=== PATIENT | female | born 1940 | race Caucasian/White ===

== ENCOUNTER 2017-10-29 13:10 | Outpatient (RCR) | payer MEDICARE ==
[2017-06-09 10:26] VITALS: BMI 17.7
[~2017-10-29 13:10] MED LIST: ACE3 PO; CALC500T76 PO; CET10 PO; CHOL10005 PO; CIT500PT PO; CITA-139 PO; CLON-303 PO; CYAN100088 PO; DICL25TA9 PO; DOC100 PO; FAMO-122 PO; FEXO180T87 PO; FLUT16SP19 NS; FOL1 PO; GAB100 PO; GABA-549 PO; HYDR200T39 PO; LEVO50TA80 PO; LEVO50TA86 PO; LISI-346 PO; LISI2.5T60 PO; LISI5TAB25 PO; MELO-150 PO; MULT-767 PO; MYCO500T28 PO; OXYC5TAB38 PO; POTA8TAB41 PO; PRE5 PO; ROPI0.5T25 PO; TRAM-420 PO; VALTAREN GEL; [UNRECOGNIZED DRUG - CODE] PO; magnesium PO
[2017-10-29 13:32] VITALS: BP 130/73
[2017-10-29 14:47] LABS: PLATELET COUNT, AUTOMATED 278 K/uL (150-450)
--- NOTE | 2017-10-29 21:07 | ONCOLOGY FOLLOW UP NOTE ---
EVENT DATE: October 29, 2017 REASON FOR FOLLOWUP 1. Iron deficiency anemia. 2. Leukopenia. INTERIM HISTORY Alexander returns to the clinic for a follow-up visit today. She is accompanied by her . It has been more than one year since we last followed up in my [place] clinic. She is seen today in my [facility] clinic. Alexander has had a very difficult time since our last visit. She relates her prior issues from an orthopedic standpoint, with a traumatic fall, repair, MRSA infection, and appliance malfunction. She also relates that she had been receiving intravenous antibiotics until last fall. She had lost a tremendous amount of weight during that period of time, and she has not been able to gait it back. She thinks that she has lost an additional 20 pounds since mid summer of 2016. She does admit that her appetite has not been particularly good, and her mood has not been good either, likely as a result of all of her physical ailments. She reports rather tremendous ongoing fatigue. She has not been sleeping particularly well. She does have diffuse aches and pains that at times are more problematic than at others. For the most part she takes Tylenol No. 3 for her arthralgias. She reports no fever. She denies nausea. She has had no changes in her bowel or bladder habits. REVIEW OF SYSTEMS Otherwise negative, and all systems were reviewed. PAST MEDICAL HISTORY 1. History of migraine headache. 2. Rheumatoid arthritis. 3. Reported history of fibromyalgia. 4. History of sinus infection. 5. History of seizures, remote. PAST SURGICAL HISTORY 1. Please see history of present illness. 2. Hysterectomy. 3. Status post gallbladder surgery. FAMILY HISTORY Noncontributory. SOCIAL HISTORY The patient is a never smoker. She does not drink alcohol. There is no history of illicit drug use. She lives in [place] with her . CURRENT MEDICATIONS 1. Lisinopril. 2. Levothyroxine. 3. Gabapentin. 4. Tramadol. 5. Fluticasone. 6. Fexofenadine. 7. Vitamin B12. 8. Patient reports Tylenol No. 3, although oxycodone p.r.n. is on her medication list. ALLERGIES PENICILLINS, SULFA and PHENYTOIN. She has adverse reaction to MORPHINE. VITAL SIGNS Temperature is 96.6, blood pressure 130/73, heart rate 71, respirations 16, oxygen saturation is 92% on room air. Weight is 42 kg. PHYSICAL EXAMINATION GENERAL: Patient is alert and oriented times three, in no apparent distress, sitting in the exam room chair. She is pleasant and interactive, but affect is fairly flat. HEENT: Exam reveals anicteric sclerae. No significant oropharyngeal lesions. NEUROLOGIC: Exam is grossly normal. Her gait is antalgic, ambulating with a cane. EXTREMITIES: Exam reveals deformity of bilateral hands. SKIN: Exam reveals no concerning rash or lesion. LABORATORY STUDIES None today. ASSESSMENT AND PLAN 1. Iron deficiency anemia. I have not seen Alexander for about a year. In that period of time, she has had a rather difficult time from an orthopedic and infectious disease standpoint. She has lost a rather significant amount of weight, she continues to be chronically fatigued, and she has diffuse arthralgias. All of these are combining for a rather dramatic negative impact on her general quality of life. Some of her fatigue could certainly be due to recurrent iron deficiency anemia, and we will assess for this on upcoming labs today. I will be back in touch with her with the results of these labs. We have tenatively planned to meet again in about six months' time, or we may need to meet sooner if she again requires intravenous iron. 2. History of rheumatoid arthritis, pain control. Alexander is interested in a second opinion from a rheumatology standpoint. For this reason, I will refer her to see Dr. Lund with [facility]. I spent a total of 30 minutes of [id number] time with the patient and her today, and 25 minutes of this was spent in direct counseling and coordination of care. ANGEL
== END 2017-11-07 09:16 | disposition home or self-care (01) ==
LOC: ONC 13:10
PROVIDERS: ATTEND Internal Medicine Medical Oncology
DX: D50.9 Iron deficiency anemia, unspecified (principal); R53.83 Other fatigue; D72.819 Decreased white blood cell count, unspecified; Z79.899 Other long term (current) drug therapy; M21.942 Unspecified acquired deformity of hand, left hand; M21.941 Unspecified acquired deformity of hand, right hand
CPT/HCPCS: 36415; 82728; 83540; 83550; 85025; G0463; 99212

== ENCOUNTER 2017-11-12 16:30 | Emergency (ER) | payer MEDICARE ==
[2017-06-09 10:26] VITALS: Ht 165.1 cm; Wt 54.4 kg
[~2017-11-12] VITALS: Ht 165.1 cm; Wt 54.4 kg
--- NOTE | 2017-11-12 16:42 | ER Report ---
History and Physical Time Seen By MD: 16:42 Hx. of Stated Complaint: PT REPORTS L KNEE PAIN, REPORTS SHE GOT A CORTISONE SHOT IN KNEE 5 HOURS AGO; ALSO REPORTS SHE IS CONSTIPATED; PT REPORTS NO ABDOMINAL PAIN HPI/ROS CHIEF COMPLAINT: Weakness, constipation, knee pain HISTORY OF PRESENT ILLNESS: 77-year-old female patient presents to the emergency room with complaint of weakness, constipation, knee pain. Patient states she's been having knee pain for the past several years. She states that 2 years ago she fell and broke her femur. She states since then she's been having leg pain. Her states he's concerned about constipation. He states she has not had a bowel movement in 3 days. He states that she's not had any fevers or chills. He states she has been getting up frequently throughout the night urinating. He states she's concerned because she see me more and more fatigued. Patient denies having any abdominal pain. REVIEW OF SYSTEMS: Respiratory: No cough, no dyspnea. Cardiovascular: No chest pain, no palpitations. Gastrointestinal: No vomiting, no abdominal pain. Musculoskeletal: As noted above Allergies: Coded Allergies: Sulfa (Sulfonamide Antibiotics) (Verified Allergy, Severe, HIVES, DIFFICULTY BREATHING, 11/12/17) Penicillins (Verified Allergy, Intermediate, HIVES, DIFFICULTY BREATHING, 11/12/17) phenytoin (Verified Allergy, Intermediate, HIVES, 11/12/17) morphine (Verified Adverse Reaction, Intermediate, SEVERE CHANGE IN LOC, ) Home Meds Active Scripts Oxycodone Hcl (OXYCODONE HCL) 5 Mg Tablet, 5 MG PO Q6H Y for PAIN, #30 TAB Prov:GREG LOPEZ DO 06/11/17 Lisinopril (LISINOPRIL) 5 Mg Tablet, 2.5 MG PO QDAY, #30 TAB Prov:GREG LOPEZ DO 06/11/17 Levothyroxine Sodium (LEVOTHYROXINE SODIUM) 50 Mcg Tablet, 0.05 MG PO QDAY@06, # 30 TAB Prov:GREG LOPEZ DO 06/11/17 Reported Medications Gabapentin (GABAPENTIN) 300 Mg Capsule, 300 MG PO DAILY@0800, CAPSULE 04/07/17 Tramadol Hcl (TRAMADOL HCL) 50 Mg Tablet, 50-100 MG PO Q4H Y for PAIN, TAB 04/07/17 Fluticasone Prop 50 Mcg Ns (FLONASE 50 MCG NS) 16 Gm [place].susp, 1 SPRAY NS BID , BOT 04/07/17 Fexofenadine Hcl (FEXOFENADINE HCL) 180 Mg Tablet, 180 MG PO QDAY 04/07/17 Cyanocobalamin (Vitamin B-12) (B-12) 1,000 Mcg Tablet.er, 1000 MCG PO QDAY 04/07/17 Cholecalciferol (Vitamin D3) (VITAMIN D3) 1,000 Unit Tablet, 2000 UNIT PO QDAY, TAB 04/07/17 Calcium Carbonate/Vitamin D3 (Calcium 600 + Vit D3 400 Tab) 600 Mg-400 Tablet, 1 TAB PO QDAY 04/07/17 Folic Acid (Folic Acid) 1 Mg Tab, 1 MG PO QDAY, 0 Refills 02/05/10 Folic Acid/Mv,Fe,Other Min (Centrum Complete Multivit Tab) 1 Each Tablet, 1 EACH PO DAILY, 0 Refills 02/05/10 Discontinued Reported Medications Prednisone (Prednisone) 5 Mg Tab, 5 MG PO QDAY, 0 Refills 02/05/10 Past Medical/Surgical History Patient has a past medical history of seizures, migraines, hypertension, urinary incontinence, frequent UTI, fracture of left femur, fibromyalgia, restless leg, arthritis, hypothyroidism, rheumatoid arthritis, depression. Patient has surgical history of cholecystectomy, hysterectomy, pinning of left femur, tonsillectomy. Reviewed Nurses Notes: Yes Hx Smoking: No Smoking Status: Never Smoker Exposure to Second Hand Smoke?: No Hx Substance Use Disorder: No Hx Alcohol Use: No Constitutional Vital Sign - Last 24 Hours 11/12/17 11/12/17 11/12/17 11/12/17 16:36 16:38 16:38 16:40 Temp 98.2 Pulse 92 89 Resp 16 B/P (MAP) 192/156 (168) 192/103 192/103 (132) Pulse Ox 92 90 O2 Delivery Room Air 11/12/17 11/12/17 11/12/17 11/12/17 16:45 16:50 16:55 17:00 Pulse 87 86 87 87 B/P (MAP) 197/95 (129) Pulse Ox 93 93 88 11/12/17 11/12/17 11/12/17 11/12/17 17:05 17:10 17:15 17:20 Pulse 88 87 87 85 Pulse Ox 87 87 89 11/12/17 11/12/17 11/12/17 11/12/17 17:25 17:30 17:35 17:40 Pulse 89 85 83 B/P (MAP) 212/92 (132) Pulse Ox 92 86 86 91 11/12/17 11/12/17 11/12/17 11/12/17 17:45 17:50 17:55 18:15 Pulse 93 93 95 Resp 29 Pulse Ox 97 91 91 11/12/17 11/12/17 11/12/17 11/12/17 18:25 18:30 18:35 18:40 Pulse 92 90 91 87 Resp 11 20 11 13 B/P (MAP) 214/102 (139) Pulse Ox 88 85 86 11/12/17 11/12/17 11/12/17 11/12/17 18:45 18:50 18:51 18:55 Pulse 84 85 86 Resp 19 15 12 Pulse Ox 100 100 100 O2 Flow Rate 2.0 Intake and Output 11/12/17 11/12/17 11/13/17 15:00 23:00 07:00 Intake Total 500 ml Balance 500 ml Physical Exam General Appearance: The patient is alert, has no immediate need for airway protection and no current signs of toxicity. ENT: Tympanic membranes are pearly-smiley, auditory canals are patent, mucus mucous membranes are moist. Respiratory: Chest is non tender, lungs are clear to auscultation. Cardiac: regular rate and rhythm Gastrointestinal: Abdomen is soft and non tender, no masses, bowel sounds normal. Musculoskeletal: Neck: Neck is supple and non tender. Extremities have full range of motion and are non tender. Skin: No rashes or lesions. DIFFERENTIAL DIAGNOSIS: After history and physical exam differential diagnosis was considered for urinary tract infection, or joint abnormality, dehydration, NE, worsening dementia. Medical Decision Making Data Points Result Diagram: 11/12/17 1706 11/12/17 1706 Laboratory Hematology Test 11/12/17 17:06 Red Blood Count 4.51 M/uL (4.17-5.56) Mean Corpuscular Volume 88.9 fL (80.0-96.0) Mean Corpuscular Hemoglobin 29.7 pg (26.0-33.0) Mean Corpuscular Hemoglobin Concent 33.4 g/dL (32.0-36.0) Red Cell Distribution Width 13.0 % (11.5-14.5) Mean Platelet Volume 7.8 fL (7.2-11.1) Neutrophils (%) (Auto) 89.0 % (39.4-72.5) Lymphocytes (%) (Auto) 5.5 % (17.6-49.6) Monocytes (%) (Auto) 4.8 % (4.1-12.4) Eosinophils (%) (Auto) 0.0 % (0.4-6.7) Basophils (%) (Auto) 0.7 % (0.3-1.4) Nucleated RBC Relative Count (auto) 0.0 /100WBC Neutrophils # (Auto) 5.4 K/uL (2.0-7.4) Lymphocytes # (Auto) 0.3 K/uL (1.3-3.6) Monocytes # (Auto) 0.3 K/uL (0.3-1.0) Eosinophils # (Auto) 0.0 K/uL (0.0-0.5) Basophils # (Auto) 0.0 K/uL (0.0-0.1) Nucleated RBC Absolute Count (auto) 0.00 K/uL Sodium Level 134 mmol/L (137-145) Potassium Level 3.0 mmol/L (3.5-5.0) Chloride Level 86 mmol/L (98-107) Carbon Dioxide Level 40 mmol/L (22-31) Blood Urea Nitrogen 38 mg/dl (7-18) Creatinine 2.50 mg/dl (0.52-1.04) Glomerular Filtration Rate Calc 18.7 Random Glucose 140 mg/dl (75-110) Calcium Level 17.2 mg/dl (8.4-10.2) Total Bilirubin 0.5 mg/dl (0.2-1.3) Aspartate Amino Transf (AST/SGOT) 141 U/L (0-35) Alanine Aminotransferase (ALT/SGPT) 54 U/L (0-56) Alkaline Phosphatase 77 U/L (0-126) Troponin I 0.202 ng/ml Total Protein 7.0 gm/dl (6.3-8.2) Albumin 3.7 g/dl (3.5-5.0) Chemistry Test 11/12/17 17:06 White Blood Count 6.1 k/uL (4.5-11.0) Red Blood Count 4.51 M/uL (4.17-5.56) Hemoglobin 13.4 g/dL (12.0-16.0) Hematocrit 40.1 % (34.0-47.0) Mean Corpuscular Volume 88.9 fL (80.0-96.0) Mean Corpuscular Hemoglobin 29.7 pg (26.0-33.0) Mean Corpuscular Hemoglobin Concent 33.4 g/dL (32.0-36.0) Red Cell Distribution Width 13.0 % (11.5-14.5) Platelet Count 287 K/uL (150-450) Mean Platelet Volume 7.8 fL (7.2-11.1) Neutrophils (%) (Auto) 89.0 % (39.4-72.5) Lymphocytes (%) (Auto) 5.5 % (17.6-49.6) Monocytes (%) (Auto) 4.8 % (4.1-12.4) Eosinophils (%) (Auto) 0.0 % (0.4-6.7) Basophils (%) (Auto) 0.7 % (0.3-1.4) Nucleated RBC Relative Count (auto) 0.0 /100WBC Neutrophils # (Auto) 5.4 K/uL (2.0-7.4) Lymphocytes # (Auto) 0.3 K/uL (1.3-3.6) Monocytes # (Auto) 0.3 K/uL (0.3-1.0) Eosinophils # (Auto) 0.0 K/uL (0.0-0.5) Basophils # (Auto) 0.0 K/uL (0.0-0.1) Nucleated RBC Absolute Count (auto) 0.00 K/uL Glomerular Filtration Rate Calc 18.7 Calcium Level 17.2 mg/dl (8.4-10.2) Total Bilirubin 0.5 mg/dl (0.2-1.3) Aspartate Amino Transf (AST/SGOT) 141 U/L (0-35) Alanine Aminotransferase (ALT/SGPT) 54 U/L (0-56) Alkaline Phosphatase 77 U/L (0-126) Troponin I 0.202 ng/ml Total Protein 7.0 gm/dl (6.3-8.2) Albumin 3.7 g/dl (3.5-5.0) EKG/Imaging EKG Interpretation 12 lead EKG: Rhythm: normal sinus rhythm [place]: normal QRS: RSR', possible right ventricular conduction delay ST segments: ST elevation in lead V2, T-wave inversion in lead 3, flattening of T-wave in V1. Imaging Exam type: CHEST SINGLE AP History: Fatigue Comparison: June 08, 2017. Findings: Again noted is the extremely large hiatal hernia. No definite pulmonary consolidation is seen. The cardiac silhouette appears unchanged. Vertebroplasty changes are noted in the thoracic spine. There are surgical clips the right upper quadrant IMPRESSION: 1. Extremely large hiatal hernia again demonstrated with no definite pulmonary consolidation identified Report Dictated By: Barbara Ortiz MD at 11/12/2017 5:37 PM Report E-Signed By: Barbara Ortiz MD at 11/12/2017 5:39 PM Exam type: KUB SINGLE VIEW ABDOMEN History: Comparison: June 09, 2017. Findings: Bowel gas pattern appears nonspecific other than a moderate amount of fecal material in the left-sided colon and rectum. Surgical clips identified in the right upper quadrant of abdomen. No gross evidence of again a megaly. Suggest dextroconvex scoliosis lumbar spine with extensive spondylotic changes. An old posttraumatic deformity of the left hip again seen IMPRESSION: 1. Moderate amount of fecal material throughout the left-sided colon and rectum Report Dictated By: Barbara Ortiz MD at 11/12/2017 5:36 PM Report E-Signed By: Barbara Ortiz MD at 11/12/2017 5:37 PM ED Course/Re-evaluation ED Course Patient was admitted to exam room, history and physical were obtained. Differential diagnoses were considered. On examination patient has some tenderness to the right hip as well as the left lower leg. Patient does have a bandage for the left knee where she had a cortisone injection done today. A CBC , CMP, EKG, troponin, chest x-ray, KUB x-ray was done. Patient had elevated calcium of 17.2, troponin was 0.202, EKG showed ST elevation in lead V2 with flattening in V1 and inverted T-wave in V3. Chest x-ray showed a large hiatal hernia, KUB showed moderate stool in the descending colon. I discussed the findings with the patient and her . With the elevated troponin I would like to transfer to a higher level of care. The patient's requested if he could drive her down himself. Due to the nature of her illness I do not believe that would be appropriate. Discussed that she did need to go down by ambulance. I then spoke with Dr. Lopez, hospitalist, who agreed that the patient needed to be transferred. I spoke with Dr. Christopher, hospitalist at [facility], who agreed to accept the patient for admission. Patient will be transferred to [facility] via ambulance. Patient and her verbalized understanding and agreement. Decision to Disposition Date: Nov 12, 2017 Decision to Disposition Time: 18:16 Depart Departure Latest Vital Signs Vital Signs Date Time Temp Pulse Resp B/P (MAP) Pulse Ox O2 Delivery O2 Flow Rate FiO2 11/12/17 18:55 86 12 100 11/12/17 18:51 2.0 11/12/17 18:30 214/102 (139) 11/12/17 16:38 98.2 Room Air Impression: Primary Impression: Elevated troponin Additional Impressions: ST elevation HYPERCALCEMIA Acute renal failure Condition: Condition Unchanged Disposition: XFER TO ACUTE CARE HOSPITAL Referrals: CITLALLI AGARWAL MD (PCP) Problem Qualifiers Additional Impressions: Acute renal failure Acute renal failure type: unspecified Qualified Codes: N17.9 - Acute kidney failure, unspecified LEXIE FAJARDO Nov 12, 2017 16:42
[2017-11-12] MEDS ORDERED: NS(*) 0.9% 500 ML BAG 500 ML IV ONE (16:55)
[2017-11-12 17:24] LABS: PLATELET COUNT, AUTOMATED 287 K/uL (150-450)
--- NOTE | 2017-11-12 17:41 | RADIOLOGY IMAGING REPORT ---
FACILITY: [facility] [place] PATIENT NAME: Kathy Amos : 1940 MR: [id number] V: [id number] EXAM DATE: ORDERING PHYSICIAN: LEXIE FAJARDO TECHNOLOGIST: Location: [facility] Patient: Kathy Amos : 1940 Visit/Account:[id number] Date of Sevice: 11/12/2017 Exam type: KUB SINGLE VIEW ABDOMEN History: Comparison: June 09, 2017. Findings: Bowel gas pattern appears nonspecific other than a moderate amount of fecal material in the left-side d colon and rectum. Surgical clips identified in the right upper quadrant of abdomen. No gross evid ence of again a megaly. Suggest dextroconvex scoliosis lumbar spine with extensive spondylotic osuna es. An old posttraumatic deformity of the left hip again seen IMPRESSION: 1. Moderate amount of fecal material throughout the left-sided colon and rectum Report Dictated By: Barbara Ortiz MD at 11/12/2017 5:36 PM Report E-Signed By: Barbara Ortiz MD at 11/12/2017 5:37 PM WSN:[email or web address]
--- NOTE | 2017-11-12 17:44 | RADIOLOGY IMAGING REPORT ---
[place] [facility] [place]IENT NAME: Kathy Amos : 1940 MR: [id number] V: [id number] EXAM DATE: ORDERING PHYSICIAN: LEXIE FAJARDO [place]CHNOLOGIST: [place] [facility] [place] Am[place] : 1940 Visit/Account:[id number] Date of Sevice: 11/12/2017 Exam type: CHEST SINGLE AP History: Fatigue Comparison: June 08, 2017. Findings: Again noted is the extremely large hiatal hernia. No definite pulmonary consolidation is seen. The cardiac silhouette appears unchanged. Vertebroplasty changes are noted in the thoracic spine. There are surgical clips the right upper quadrant IMPRESSION: 1. Extremely large hiatal hernia again demonstrated with no definite pulmonary consolidation identif ied Report Dictated By: Barbara Ortiz MD at 11/12/2017 5:37 PM Report E-Signed By: Barbara Ortiz MD at 11/12/2017 5:39 PM WSN:[email or web address]
--- NOTE | 2017-11-12 18:19 | EKG ---
FACILITY: [facility] [place] PATIENT NAME: TAYA CORNELIUS : [id number] MR: [id number] V: [id number] EXAM DATE: ORDERING PHYSICIAN: LEXIE FAJARDO TECHNOLOGIST: HARSHAD Test Reason : WEAKNESS Blood Pressure : / mmHG Vent. Rate : 086 BPM Atrial Rate : 086 BPM P-R Int : 200 ms QRS Dur : 088 ms QT Int : 432 ms P-R-T Axes : 066 018 010 degrees QTc Int : 516 ms Normal sinus rhythm RSR' or QR pattern in V1 suggests right ventricular conduction delay Anteroseptal infarct (cited on or before 08-JUN-2017) T wave abnormality, consider inferior ischemia Prolonged QT ACUTE IN Abnormal ECG When compared with ECG of 08-JUN-2017 21:20, T wave inversion now evident in Inferior leads T wave inversion now evident in Anterior leads QT has lengthened Confirmed by GREG LOPEZ ([id number]) on 11/13/2017 5:36:20 AM Referred By: ALY Confirmed By:GREG LOPEZ
[2017-11-12] MEDS ORDERED: ASPIRIN 81 MG CHEW PO ONE (18:40)
[2017-11-12 19:30] VITALS: BP 205/125
== END 2017-11-12 19:42 | disposition short-term general hospital (02) ==
LOC: ER 16:56
DX: R79.89 Other specified abnormal findings of blood chemistry (principal); N17.9 Acute kidney failure, unspecified; I21.3 ST elevation (STEMI) myocardial infarction of unspecified site; E83.52 Hypercalcemia
CPT/HCPCS: 71045; 74018; 84484; 85025; 93005; 96360; 99285; A9270; J7040; 82040; 82247; 82310; 82374; 82435; 82565; 82947; 84075; 84132; 84155; 84295; 84450; 84460; 84520

== ENCOUNTER → 2017-11-12 | Outpatient (CLI) | payer MEDICARE ==
[2017-06-09 10:26] VITALS: BMI 17.7
== END ==
LOC: AMB 19:27
PROVIDERS: ATTEND Nurse Practitioner
DX: R79.89 Other specified abnormal findings of blood chemistry (principal); I10 Essential (primary) hypertension; R41.0 Disorientation, unspecified
CPT/HCPCS: A0425; A0426

== ENCOUNTER 2018-06-15 13:16 | Emergency (ER) | payer MEDICARE ==
[2017-06-09 10:26] VITALS: Wt 54.6 kg
[~2018-06-15 13:16] MED LIST changes: -CITA-139 PO; +CITA-145 PO
--- NOTE | 2018-06-15 13:25 | ER Report ---
History and Physical Time Seen By MD: 13:25 HPI/ROS 78-year-old female with multiple medical problems presents to the emergency department with left lower quadrant pain for the past 2 weeks. She has also been taking less by mouth. No fever chills, no nausea vomiting or diarrhea. She's had no change in her appetite lately, but does report that she has had a 15-20 pound weight loss over the past one year. They have been struggling with finding a primary physician. No trauma. No dysuria or hematuria. She has a known hiatal hernia, and she states that she will get pain in her mid epigastric region only if she eats to much at one time. Remainder of the 14 system rev: Yes Allergies: Coded Allergies: Sulfa (Sulfonamide Antibiotics) (Verified Allergy, Severe, HIVES, DIFFICULTY BREATHING, 06/15/18) Penicillins (Verified Allergy, Intermediate, HIVES, DIFFICULTY BREATHING, 06/15/18) phenytoin (Verified Allergy, Intermediate, HIVES, 06/15/18) morphine (Verified Adverse Reaction, Intermediate, SEVERE CHANGE IN LOC, 06/15/18) Home Meds Active Scripts Potassium Chloride (K-TAB) 10 Meq Tablet.er, 20 MEQ PO QDAY for 2 Days, #4 TAB Prov:BALA OLMSO MD 06/15/18 Lisinopril (LISINOPRIL) 5 Mg Tablet, 2.5 MG PO QDAY, #30 TAB Prov:GREG LOPEZ DO 06/11/17 Reported Medications Oxybutynin Chloride (OXYBUTYNIN CHLORIDE ER) 10 Mg Tab.er.24, 10 MG PO QDAY, TAB.SR 06/15/18 Hydroxychloroquine Sulfate (HYDROXYCHLOROQUINE SULFATE) 200 Mg Tablet, 200 MG PO QHS 06/15/18 Levothyroxine Sodium (LEVOTHYROXINE SODIUM) 100 Mcg Tablet, 100 MCG PO QDAY, TAB 06/15/18 Diclofenac Sodium (DICLOFENAC SODIUM) 25 Mg Tablet.dr, 25 MG PO BID, TAB 06/15/18 Clonazepam (CLONAZEPAM) 1 Mg Tablet, 1 MG PO PRN, #6 TAB 06/15/18 Carvedilol (CARVEDILOL) 12.5 Mg Tablet, 12.5 MG PO BID, #10 TAB 06/15/18 Amlodipine Besylate (AMLODIPINE BESYLATE) 5 Mg Tablet, 1 TAB PO QDAY, TAB 06/15/18 Gabapentin (GABAPENTIN) 300 Mg Capsule, 300 MG PO DAILY@0800, CAPSULE 04/07/17 Fluticasone Prop 50 Mcg Ns (FLONASE 50 MCG NS) 16 Gm [place].susp, 1 SPRAY NS BID, BOT 04/07/17 Cyanocobalamin (Vitamin B-12) (B-12) 1,000 Mcg Tablet.er, 1000 MCG PO QDAY 04/07/17 Cholecalciferol (Vitamin D3) (VITAMIN D3) 1,000 Unit Tablet, 2000 UNIT PO QDAY, TAB 04/07/17 Calcium Carbonate/Vitamin D3 (Calcium 600 + Vit D3 400 Tab) 600 Mg-400 Tablet, 1 TAB PO QDAY 04/07/17 Folic Acid (Folic Acid) 1 Mg Tab, 1 MG PO QDAY, 0 Refills 02/05/10 Folic Acid/Mv,Fe,Other Min (Centrum Complete Multivit Tab) 1 Each Tablet, 1 EACH PO DAILY, 0 Refills 02/05/10 Discontinued Reported Medications Hydroxychloroquine Sulfate (HYDROXYCHLOROQUINE SULFATE) 200 Mg Tablet, 400 MG PO BID 06/15/18 Tramadol Hcl (TRAMADOL HCL) 50 Mg Tablet, 50-100 MG PO Q4H PRN for PAIN, TAB 04/07/17 Fexofenadine Hcl (FEXOFENADINE HCL) 180 Mg Tablet, 180 MG PO QDAY 04/07/17 Discontinued Scripts Oxycodone Hcl (OXYCODONE HCL) 5 Mg Tablet, 5 MG PO Q6H PRN for PAIN, #30 TAB Prov:GREG LOPEZ DO 06/11/17 Levothyroxine Sodium (LEVOTHYROXINE SODIUM) 50 Mcg Tablet, 0.05 MG PO QDAY@06, #30 TAB Prov:GREG LOPEZ DO 06/11/17 Reviewed Nurses Notes: Yes Old Medical Records Reviewed: Yes Hx Smoking: No Smoking Status: Never Smoker Exposure to Second Hand Smoke?: No Hx Substance Use Disorder: No Hx Alcohol Use: No Constitutional Vital Sign - Last 24 Hours 06/15/18 06/15/18 06/15/18 06/15/18 13:20 13:28 13:46 14:00 Temp 97.9 Pulse 68 62 Resp 18 B/P (MAP) 119/67 119/67 (84) 121/74 (90) Pulse Ox 99 100 O2 Delivery Room Air 06/15/18 06/15/18 06/15/18 06/15/18 14:46 14:51 15:00 15:21 Pulse 63 65 61 B/P (MAP) 104/68 (80) Pulse Ox 91 92 91 06/15/18 06/15/18 06/15/18 06/15/18 15:51 15:56 16:00 16:30 Pulse 67 68 B/P (MAP) 128/68 (88) 126/70 (88) Pulse Ox 94 91 06/15/18 06/15/18 16:56 17:00 Pulse 63 B/P (MAP) 115/72 (86) Pulse Ox 89 Physical Exam General Appearance: The patient is alert, has no immediate need for airway protection and no current signs of toxicity. Eyes: Pupils equal and round no injection. Respiratory: Chest is non tender, lungs are clear to auscultation. Cardiac: regular rate and rhythm Gastrointestinal: Abdomen is soft and not distended. There is very minimal tenderness to palpation at the left lower quadrant. No other tenderness to palpation in either of the other 3 quadrants Musculoskeletal: Neck: Neck is supple and non tender. Extremities have full range of motion and are non tender. Skin: No rashes or lesions. DIFFERENTIAL DIAGNOSIS: After history and physical exam differential diagnosis was considered for abdominal pain including but not limited to appendicitis, cholecystitis, gastritis and urinary tract infection. Medical Decision Making Data Points Result Diagram: 06/15/18 1340 06/15/18 1340 Laboratory Hematology Test 06/15/18 13:40 06/15/18 13:50 Red Blood Count 3.94 M/uL (4.17-5.56) Mean Corpuscular Volume 86.8 fL (80.0-96.0) Mean Corpuscular Hemoglobin 28.9 pg (26.0-33.0) Mean Corpuscular Hemoglobin Concent 33.3 g/dL (32.0-36.0) Red Cell Distribution Width 14.1 % (11.5-14.5) Mean Platelet Volume 7.4 fL (7.2-11.1) Neutrophils (%) (Auto) 68.0 % (39.4-72.5) Lymphocytes (%) (Auto) 18.3 % (17.6-49.6) Monocytes (%) (Auto) 10.6 % (4.1-12.4) Eosinophils (%) (Auto) 2.0 % (0.4-6.7) Basophils (%) (Auto) 1.1 % (0.3-1.4) Nucleated RBC Relative Count (auto) 0.0 /100WBC Neutrophils # (Auto) 4.6 K/uL (2.0-7.4) Lymphocytes # (Auto) 1.2 K/uL (1.3-3.6) Monocytes # (Auto) 0.7 K/uL (0.3-1.0) Eosinophils # (Auto) 0.1 K/uL (0.0-0.5) Basophils # (Auto) 0.1 K/uL (0.0-0.1) Nucleated RBC Absolute Count (auto) 0.00 K/uL Sodium Level 136 mmol/L (137-145) Potassium Level 2.9 mmol/L (3.5-5.0) Chloride Level 97 mmol/L (98-107) Carbon Dioxide Level 29 mmol/L (22-31) Blood Urea Nitrogen 16 mg/dl (7-18) Creatinine 1.00 mg/dl (0.52-1.04) Glomerular Filtration Rate Calc 53.8 Random Glucose 79 mg/dl (75-110) Lactate 1.2 mmol/L (0.7-2.1) Calcium Level 9.7 mg/dl (8.4-10.2) Total Bilirubin 0.3 mg/dl (0.2-1.3) Aspartate Amino Transf (AST/SGOT) 36 U/L (0-35) Alanine Aminotransferase (ALT/SGPT) 36 U/L (0-56) Alkaline Phosphatase 45 U/L (0-126) Total Protein 5.8 g/dl (6.3-8.2) Albumin 3.2 g/dl (3.5-5.0) Urine Color Yellow Urine Clarity Turbid Urine pH 7.0 pH (4.8-9.5) Urine Specific Gould 1.015 Urine Protein Negative mg/dL (NEGATIVE) Urine Glucose (UA) Negative mg/dL (NEGATIVE) Urine Ketones Trace mg/dL (NEGATIVE) Urine Blood Negative (NEGATIVE) Urine Nitrite Negative (NEGATIVE) Urine Bilirubin Negative (NEGATIVE) Urine Urobilinogen Negative mg/dL (0.2-1.9) Urine Leukocyte Esterase Negative (NEGATIVE) Urine RBC None /HPF (0-2/HPF) Urine WBC 1 /HPF (0-5/HPF) Urine Squamous Epithelial Cells None /LPF (NONE-FEW) Urine Amorphous Crystals Moderate /HPF Urine Bacteria Negative /HPF (NONE-FEW) Urine Mucus Few /HPF (NONE-FEW) Chemistry Test 06/15/18 13:40 06/15/18 13:50 White Blood Count 6.8 k/uL (4.5-11.0) Red Blood Count 3.94 M/uL (4.17-5.56) Hemoglobin 11.4 g/dL (12.0-16.0) Hematocrit 34.2 % (34.0-47.0) Mean Corpuscular Volume 86.8 fL (80.0-96.0) Mean Corpuscular Hemoglobin 28.9 pg (26.0-33.0) Mean Corpuscular Hemoglobin Concent 33.3 g/dL (32.0-36.0) Red Cell Distribution Width 14.1 % (11.5-14.5) Platelet Count 386 K/uL (150-450) Mean Platelet Volume 7.4 fL (7.2-11.1) Neutrophils (%) (Auto) 68.0 % (39.4-72.5) Lymphocytes (%) (Auto) 18.3 % (17.6-49.6) Monocytes (%) (Auto) 10.6 % (4.1-12.4) Eosinophils (%) (Auto) 2.0 % (0.4-6.7) Basophils (%) (Auto) 1.1 % (0.3-1.4) Nucleated RBC Relative Count (auto) 0.0 /100WBC Neutrophils # (Auto) 4.6 K/uL (2.0-7.4) Lymphocytes # (Auto) 1.2 K/uL (1.3-3.6) Monocytes # (Auto) 0.7 K/uL (0.3-1.0) Eosinophils # (Auto) 0.1 K/uL (0.0-0.5) Basophils # (Auto) 0.1 K/uL (0.0-0.1) Nucleated RBC Absolute Count (auto) 0.00 K/uL Glomerular Filtration Rate Calc 53.8 Lactate 1.2 mmol/L (0.7-2.1) Calcium Level 9.7 mg/dl (8.4-10.2) Total Bilirubin 0.3 mg/dl (0.2-1.3) Aspartate Amino Transf (AST/SGOT) 36 U/L (0-35) Alanine Aminotransferase (ALT/SGPT) 36 U/L (0-56) Alkaline Phosphatase 45 U/L (0-126) Total Protein 5.8 g/dl (6.3-8.2) Albumin 3.2 g/dl (3.5-5.0) Urine Color Yellow Urine Clarity Turbid Urine pH 7.0 pH (4.8-9.5) Urine Specific [place] 1.015 Urine Protein Negative mg/dL (NEGATIVE) Urine Glucose (UA) Negative mg/dL (NEGATIVE) Urine Ketones Trace mg/dL (NEGATIVE) Urine Blood Negative (NEGATIVE) Urine Nitrite Negative (NEGATIVE) Urine Bilirubin Negative (NEGATIVE) Urine Urobilinogen Negative mg/dL (0.2-1.9) Urine Leukocyte Esterase Negative (NEGATIVE) Urine RBC None /HPF (0-2/HPF) Urine WBC 1 /HPF (0-5/HPF) Urine Squamous Epithelial Cells None /LPF (NONE-FEW) Urine Amorphous Crystals Moderate /HPF Urine Bacteria Negative /HPF (NONE-FEW) Urine Mucus Few /HPF (NONE-FEW) Urinalysis Test 06/15/18 13:50 Urine Color Yellow Urine Clarity Turbid Urine pH 7.0 pH (4.8-9.5) Urine Specific [place] 1.015 Urine Protein Negative mg/dL (NEGATIVE) Urine Glucose (UA) Negative mg/dL (NEGATIVE) Urine Ketones Trace mg/dL (NEGATIVE) Urine Blood Negative (NEGATIVE) Urine Nitrite Negative (NEGATIVE) Urine Bilirubin Negative (NEGATIVE) Urine Urobilinogen Negative mg/dL (0.2-1.9) Urine Leukocyte Esterase Negative (NEGATIVE) Urine RBC None /HPF (0-2/HPF) Urine WBC 1 /HPF (0-5/HPF) Urine Squamous Epithelial Cells None /LPF (NONE-FEW) Urine Amorphous Crystals Moderate /HPF Urine Bacteria Negative /HPF (NONE-FEW) Urine Mucus Few /HPF (NONE-FEW) EKG/Imaging Imaging Results: CT scan of the chest abdomen and pelvis was obtained. The results of the study are right-sided hiatal hernia. The study was read by the radiologist. Dariana viewed the images myself on the PACS system. ED Course/Re-evaluation ED Course 78-year-old well appearing female with very mild left lower quadrant pain for the past [address] scan shows evidence of constipation. I had extensive conversation with the radiologist who is very concerned about her hiatal hernia with air in the wall of the stomach. The patient appears very well, her lactate is normal, she is not febrile, she does not have any pain in the midepigastric region or the right upper quadrant. I spoke with Dr. Leija about the patient. He reviewed the CT scan as well. He agrees that clinically she looks well, her lactate is normal, and she does not have any pain near the region of the hiatal hernia. I do not think this has to do with her left lower quadrant pain. I think her left lower quadrant pain is from her constipation. She was given magnesium citrate. I did give her a referral to see Dr. Kim Sanchez as well as Dr. Jacobs to discuss definitive care of the hiatal hernia. I gave him strict return to call precautions. Decision to Disposition Date: Jun 15, 2018 Decision to Disposition Time: 17:53 Depart Departure Latest Vital Signs Vital Signs Date Time Temp Pulse Resp B/P (MAP) Pulse Ox O2 Delivery O2 Flow Rate FiO2 06/15/18 17:00 115/72 (86) 06/15/18 16:56 63 89 06/15/18 13:20 97.9 18 Room Air Impression: Primary Impression: Hypokalemia Additional Impressions: Constipation Hiatal hernia Condition: Improved Disposition: HOME OR SELF-CARE Referrals: KIM SANCHEZ MD, JOHN A MD New Scripts Potassium Chloride (K-TAB) 10 Meq Tablet.er 20 MEQ PO QDAY for 2 Days, #4 TAB Prov: BALA OLMOS MD 06/15/18 Patient Instructions: Constipation (ED) Problem Qualifiers Additional Impressions: Constipation Constipation type: unspecified constipation type Qualified Codes: K59.00 - Constipation, unspecified BALA OLMOS MD Jun 15, 2018 13:25
[2018-06-15] MEDS ORDERED: NS(*) 0.9% 500 ML BAG 500 ML IV ONE (13:35)
[2018-06-15] MEDS ORDERED: ONDANSETRON 4 MG/2 ML VIAL IVP ONE (13:35)
[2018-06-15 13:59] LABS: PLATELET COUNT, AUTOMATED 386 K/uL (150-450)
[2018-06-15] MEDS ORDERED: POTASSIUM CHL 20 MEQ TABCR PO ONE (14:45)
[2018-06-15] MEDS ORDERED: IOPAMIDOL 76% 75 ML INFUS BTL 75 ML ONE (15:30)
[2018-06-15] MEDS ORDERED: HYDR200T42 PO ×2 (15:36)
[2018-06-15] MEDS ORDERED: CLON-304 PO (15:36)
[2018-06-15] MEDS ORDERED: AMLO-96 PO (15:36)
[2018-06-15] MEDS ORDERED: DICL25TA9 PO (15:36)
[2018-06-15] MEDS ORDERED: OXYB10TA16 PO (15:36)
[2018-06-15] MEDS ORDERED: CARV12.578 PO (15:36)
[2018-06-15] MEDS ORDERED: LEVO-3 PO (15:36)
--- NOTE | 2018-06-15 15:37 | RADIOLOGY IMAGING REPORT ---
[place] [facility] [place] NAME: Kathy Amos : 1940 MR: [id number] V: [id number] EXAM DATE: ORDERING PHYSICIAN: BALA OLMOS TECHNOLOGIST[place] [facility] [place] : 1940 Visit/Account:[id number] Date of Sevice: 06/15/2018 EXAMINATION: Frontal chest with 2 views of the abdomen HISTORY: Pain. COMPARISON: Chest x-ray and KUB 11/12/2017. CT chest abdomen and pelvis 06/08/2017 FINDINGS: Stable large hiatal hernia with an air-fluid level, present on multiple prior studies. There is new c urvilinear air lucency along the chirinos of the hiatal hernia, suspicious for gastric pneumatosis. Ira cent compressive atelectasis in the lower right lung. No new focal consolidation or pleural effusion. No pneumothorax. Normal heart size and pulmonary vascularity. Aortic calcification. Large volume of colonic stool may represent constipation. No evidence of bowel obstruction. No free i ntraperitoneal air. Cholecystectomy clips in the upper abdomen. No acute osseous findings. Mild thoracolumbar scoliosis with multilevel degenerative changes througho ut the spine. There are changes of prior vertebroplasty involving several mid and lower thoracic vert ebral bodies. Generalized osteopenia. IMPRESSION: 1. Large hiatal hernia. There is new curvilinear lucency along the wall of the hiatal hernia, suspici ous for pneumatosis. Follow-up CT could be performed for further evaluation. Gastric pneumatosis can be a benign self-limited finding or can be seen in the setting of more serious entities including emp hysematous gastritis or ischemia. Clinical correlation is required. 2. Adjacent atelectasis in the right lower lung. 3. Large volume of colonic stool, suggesting constipation. No evidence of bowel obstruction. Findings were discussed with BALA OLMOS at 06/15/2018 3:33 PM. Report Dictated By: Scott Singer MD at 06/15/2018 3:03 PM Report E-Signed By: Scott Singer MD at 06/15/2018 3:33 PM WSN:[id number]
--- NOTE | 2018-06-15 16:35 | RADIOLOGY IMAGING REPORT ---
FACILITY: [facility] PATIENT NAME: Kathy Amos : 1940 MR: [id number] V: [id number] EXAM DATE: ORDERING PHYSICIAN: BALA OLMOS TECHNOLOGIST: Location: [facility] Patient: Kathy Amos : 1940 Visit/Account:[id number] Date of Sevice: 06/15/2018 Examination: CT chest, abdomen, and pelvis with contrast Comparison: Radiographs same day. CT 06/08/2017 History: LLQ pain and also with air in the wall of hiatal hernia Procedure: Multiplanar contrast-enhanced imaging of the chest, abdomen, and pelvis with 75 mL intrave nous Isovue 370. One of the following dose optimization techniques was utilized in the performance of this exam: Automated exposure control; adjustment of the mA and/or kV according to the patient's siz e; or use of an iterative reconstruction technique. Specific details can be referenced in the [facility]'s radiology CT exam operational policy. Findings: CT chest: Mediastinum: Large hiatal hernia containing the entire stomach. The stomach is distended with organoa xial rotation. Additionally, there is extensive gastric wall pneumatosis with mild wall edema. No pne umomediastinum or mediastinal fluid collection. Cardiac chambers are within normal limits; there is m ass effect on the cardiac chambers from the distended stomach. Advanced coronary calcifications. Thor acic aorta moderate atherosclerosis. No thoracic aortic aneurysm or dissection. Main pulmonary artery size is normal with no centrally obstructing pulmonary embolism. No thoracic lymph node enlargement. Lungs and pleura: Small right pleural effusion. Right lung base compressive atelectasis. No consolida tion. No pneumothorax or edema. Airways: Negative. Diaphragm: Hiatal hernia containing the entirety of the stomach as well as a portion of the pancreati c body. CT abdomen and pelvis: Liver: Negative Gallbladder and biliary system: Cholecystectomy. No bile duct dilation. Spleen: Negative Pancreas: As noted above, the and carotid body extends through the hiatal hernia. The parenchyma is o therwise unremarkable with no evidence of inflammation. Adrenal glands: Negative Kidneys and urinary bladder: A few small cysts are present. No mass or hydronephrosis. Urinary bladde r is within normal limits. Vessels: Aortoiliac advanced atherosclerosis. No abdominal aortic aneurysm. The celiac artery and pro ximal branch vessels are displaced cephalad into the hiatal hernia. The portal confluence is also dis placed into the hernia; there is extrinsic compression. No definite evidence of occlusion. Bowel and mesentery: Intrathoracic stomach with pneumatosis is noted above. There are a few prominent fluid-filled loops of small bowel with questionable mild ileal wall thickening. The appendix is not identified; no pericecal inflammation. Large amount stool in the colon. No colonic inflammation. Pelvic organs: Hysterectomy. No adnexal mass. Free air/free fluid: None Lymph nodes: Negative Abdominal wall and subcutaneous tissues: Abdominal wall is intact. No focal abnormality within the v isualized subcutaneous soft tissues. Osseous structures: Left proximal femur chronic postoperative change. Demineralization with T7, T8, a nd T11 vertebroplasty. Lumbar spine advanced multilevel degenerative disc disease. No acute findings. IMPRESSION: 1. Large hiatal hernia with an intrathoracic stomach. 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 2. The hiatal hernia also contains the pancreatic body, celiac axis, and the portal confluence and is associated with significant mass effect on the mediastinal structures. 3. Distal small bowel mild distention and wall inflammation suggestive of a nonspecific enteritis. 4. Small right pleural effusion. 5. Additional nonacute findings as described above. Results we e discussed with BALA OLMOS at 06/15/2018 4:25 PM. Report Dictated By: Ruben Valencia MD at 06/15/2018 4:09 PM Report E-Signed By: Ruben Valencia MD at 06/15/2018 4:31 PM WSN:[id number]
[2018-06-15 17:00] VITALS: BP 115/72
[2018-06-15] MEDS ORDERED: MAGNESIUM CITRATE 300 ML BTL PO ONE (17:25)
[2018-06-15] MEDS ORDERED: POTA-1 PO (17:57)
== END 2018-06-15 18:05 | disposition home or self-care (01) ==
LOC: ER 13:33
DX: E87.6 Hypokalemia (principal); K59.00 Constipation, unspecified; K44.9 Diaphragmatic hernia without obstruction or gangrene
CPT/HCPCS: 71260; 74022; 74177; 81001; 83605; 85025; 96361; 96374; 99284; A9270; J2405; J7040; Q9967; 82040; 82247; 82310; 82374; 82435; 82565; 82947; 84075; 84132; 84155; 84295; 84450; 84460; 84520

== ENCOUNTER 2018-07-09 15:36 | Emergency (ER) | payer MEDICARE ==
[2017-06-09 10:26] VITALS: Wt 35.1 kg
[~2018-07-09 15:36] MED LIST changes: +AMLO-111 PO; +CARV12.578 PO; +CLON-304 PO; +HYDR200T42 PO; +LEVO-3 PO; +OXYB10TA16 PO; +POTA-1 PO
--- NOTE | 2018-07-09 15:57 | ER Report ---
History and Physical Time Seen By MD: 15:57 Hx. of Stated Complaint: PT REPORTS EPIGASTRIC ABD PAIN THAT RADIATES TO THE BACK FOR ~1 MONTH HPI/ROS This 78-year-old female who has multiple comorbidities with chronic pain. She was sent to the emergency department today by her periodontal assistant to be admitted for weight loss and to start TPN. The patient has a history of a hiatal hernia and a previous back surgery for which she takes narcotics. She's had a 15 pound weight loss in the past year. Her is at the bedside, and states that she takes narcotics and then sleeps and does not eat. He fixes her food and somet imes she eats it and sometimes she doesn't. She said recently she was able to eat eggs taken and hashbrowns. Other times she says she has too much abdominal pain and back pain when she eats. The weight loss has been ongoing for more than a year and has not exacerbated as of late. She has a follow-up appointment with Dr. Virk to discuss management of her hiatal hernia and also has a follow-up appointment with Dr. Sanchez. When asked why she is not eating, the patient has a litany of reasons. Again she is able to eat, but states she chooses not to either because she has some pain or she doesn't like the taste of food. Remainder of the 14 system rev: Yes Allergies: Coded Allergies: Sulfa (Sulfonamide Antibiotics) (Verified Allergy, Severe, HIVES, DIFFICULTY BREATHING, 07/09/18) Penicillins (Verified Allergy, Intermediate, HIVES, DIFFICULTY BREATHING, 07/09/18) phenytoin (Verified Allergy, Intermediate, HIVES, 07/09/18) morphine (Verified Adverse Reaction, Intermediate, SEVERE CHANGE IN LOC, 07/09/18) Home Meds Active Scripts Potassium Chloride (K-TAB) 10 Meq Tablet.er, 20 MEQ PO QDAY for 2 Days, #4 TAB Prov:BALA OLMOS MD 06/15/18 Lisinopril (LISINOPRIL) 5 Mg Tablet, 2.5 MG PO QDAY, #30 TAB Prov:GREG LOPEZ DO 06/11/17 Reported Medications Oxybutynin Chloride (OXYBUTYNIN CHLORIDE ER) 10 Mg Tab.er.24, 10 MG PO QDAY, TAB.SR 06/15/18 Hydroxychloroquine Sulfate (HYDROXYCHLOROQUINE SULFATE) 200 Mg Tablet, 200 MG PO QHS 06/15/18 Levothyroxine Sodium (LEVOTHYROXINE SODIUM) 100 Mcg Tablet, 100 MCG PO QDAY, TAB 06/15/18 Diclofenac Sodium (DICLOFENAC SODIUM) 25 Mg Tablet.dr, 25 MG PO BID, TAB 06/15/18 Clonazepam (CLONAZEPAM) 1 Mg Tablet, 1 MG PO PRN, #6 TAB 06/15/18 Carvedilol (CARVEDILOL) 12.5 Mg Tablet, 12.5 MG PO BID, #10 TAB 06/15/18 Amlodipine Besylate (AMLODIPINE BESYLATE) 5 Mg Tablet, 1 TAB PO QDAY, TAB 06/15/18 Gabapentin (GABAPENTIN) 300 Mg Capsule, 300 MG PO DAILY@0800, CAPSULE 04/07/17 Fluticasone Prop 50 Mcg Ns (FLONASE 50 MCG NS) 16 Gm [place].susp, 1 SPRAY NS BID, BOT 04/07/17 Cyanocobalamin (Vitamin B-12) (B-12) 1,000 Mcg Tablet.er, 1000 MCG PO QDAY 04/07/17 Cholecalciferol (Vitamin D3) (VITAMIN D3) 1,000 Unit Tablet, 2000 UNIT PO QDAY, TAB 04/07/17 Calcium Carbonate/Vitamin D3 (Calcium 600 + Vit D3 400 Tab) 600 Mg-400 Tablet, 1 TAB PO QDAY 04/07/17 Folic Acid (Folic Acid) 1 Mg Tab, 1 MG PO QDAY, 0 Refills 02/05/10 Folic Acid/Mv,Fe,Other Min (Centrum Complete Multivit Tab) 1 Each Tablet, 1 EACH PO DAILY, 0 Refills 02/05/10 Reviewed Nurses Notes: Yes Old Medical Records Reviewed: Yes Hx Smoking: No Smoking Status: Never Smoker Exposure to Second Hand Smoke?: No Hx Substance Use Disorder: No Hx Alcohol Use: No Constitutional Vital Sign - Last 24 Hours 07/09/18 07/09/18 07/09/18 07/09/18 15:40 15:50 15:51 16:00 Temp 98.2 Pulse 63 64 Resp 18 B/P (MAP) 164/86 164/86 (112) 138/75 (96) Pulse Ox 95 93 O2 Delivery Room Air 07/09/18 07/09/18 07/09/18 07/09/18 16:06 16:11 16:26 16:30 Pulse 64 66 67 B/P (MAP) 155/88 (110) Pulse Ox 95 93 95 07/09/18 07/09/18 07/09/18 07/09/18 16:35 16:50 17:00 17:05 Pulse 72 68 73 B/P (MAP) 140/97 (111) Pulse Ox 87 96 95 07/09/18 07/09/18 07/09/18 17:20 17:30 17:35 Pulse 73 70 B/P (MAP) 140/107 (118) Pulse Ox 97 96 Physical Exam General Appearance: The patient is alert, has no immediate need for airway protection and no current signs of toxicity. She appears cachectic Eyes: Pupils equal and round no injection. Respiratory: Chest is non tender, lungs are clear to auscultation. Cardiac: regular rate and rhythm Gastrointestinal: Abdomen is soft and non tender, no masses, bowel sounds normal. Neck: Neck is supple and non tender. Extremities have full range of motion and are non tender. Skin: No rashes or lesions. DIFFERENTIAL DIAGNOSIS: After history and physical exam differential diagnosis was considered for depression, failure to thrive, opiate addiction, anorexia, pain from a hiatal hernia Medical Decision Making Data Points Result Diagram: 07/09/18 1647 07/09/18 1647 Laboratory Hematology Test 07/09/18 16:47 Red Blood Count 3.93 M/uL (4.17-5.56) Mean Corpuscular Volume 84.5 fL (80.0-96.0) Mean Corpuscular Hemoglobin 28.4 pg (26.0-33.0) Mean Corpuscular Hemoglobin Concent 33.6 g/dL (32.0-36.0) Red Cell Distribution Width 15.1 % (11.5-14.5) Mean Platelet Volume 7.5 fL (7.2-11.1) Neutrophils (%) (Auto) 72.5 % (39.4-72.5) Lymphocytes (%) (Auto) 16.0 % (17.6-49.6) Monocytes (%) (Auto) 10.2 % (4.1-12.4) Eosinophils (%) (Auto) 0.6 % (0.4-6.7) Basophils (%) (Auto) 0.7 % (0.3-1.4) Nucleated RBC Relative Count (auto) 0.1 /100WBC Neutrophils # (Auto) 4.5 K/uL (2.0-7.4) Lymphocytes # (Auto) 1.0 K/uL (1.3-3.6) Monocytes # (Auto) 0.6 K/uL (0.3-1.0) Eosinophils # (Auto) 0.0 K/uL (0.0-0.5) Basophils # (Auto) 0.0 K/uL (0.0-0.1) Nucleated RBC Absolute Count (auto) 0.00 K/uL Sodium Level 134 mmol/L (137-145) Potassium Level 3.9 mmol/L (3.5-5.0) Chloride Level 93 mmol/L (98-107) Carbon Dioxide Level 32 mmol/L (22-31) Blood Urea Nitrogen 19 mg/dl (7-18) Creatinine 1.20 mg/dl (0.52-1.04) Glomerular Filtration Rate Calc 43.6 Random Glucose 93 mg/dl (75-110) Lactate 1.2 mmol/L (0.7-2.1) Calcium Level 10.4 mg/dl (8.4-10.2) Total Bilirubin 0.4 mg/dl (0.2-1.3) Aspartate Amino Transf (AST/SGOT) 41 U/L (0-35) Alanine Aminotransferase (ALT/SGPT) 35 U/L (0-56) Alkaline Phosphatase 50 U/L (0-126) Total Protein 6.4 g/dl (6.3-8.2) Albumin 3.4 g/dl (3.5-5.0) Chemistry Test 07/09/18 16:47 White Blood Count 6.1 k/uL (4.5-11.0) Red Blood Count 3.93 M/uL (4.17-5.56) Hemoglobin 11.1 g/dL (12.0-16.0) Hematocrit 33.2 % (34.0-47.0) Mean Corpuscular Volume 84.5 fL (80.0-96.0) Mean Corpuscular Hemoglobin 28.4 pg (26.0-33.0) Mean Corpuscular Hemoglobin Concent 33.6 g/dL (32.0-36.0) Red Cell Distribution Width 15.1 % (11.5-14.5) Platelet Count 309 K/uL (150-450) Mean Platelet Volume 7.5 fL (7.2-11.1) Neutrophils (%) (Auto) 72.5 % (39.4-72.5) Lymphocytes (%) (Auto) 16.0 % (17.6-49.6) Monocytes (%) (Auto) 10.2 % (4.1-12.4) Eosinophils (%) (Auto) 0.6 % (0.4-6.7) Basophils (%) (Auto) 0.7 % (0.3-1.4) Nucleated RBC Relative Count (auto) 0.1 /100WBC Neutrophils # (Auto) 4.5 K/uL (2.0-7.4) Lymphocytes # (Auto) 1.0 K/uL (1.3-3.6) Monocytes # (Auto) 0.6 K/uL (0.3-1.0) Eosinophils # (Auto) 0.0 K/uL (0.0-0.5) Basophils # (Auto) 0.0 K/uL (0.0-0.1) Nucleated RBC Absolute Count (auto) 0.00 K/uL Glomerular Filtration Rate Calc 43.6 Lactate 1.2 mmol/L (0.7-2.1) Calcium Level 10.4 mg/dl (8.4-10.2) Total Bilirubin 0.4 mg/dl (0.2-1.3) Aspartate Amino Transf (AST/SGOT) 41 U/L (0-35) Alanine Aminotransferase (ALT/SGPT) 35 U/L (0-56) Alkaline Phosphatase 50 U/L (0-126) Total Protein 6.4 g/dl (6.3-8.2) Albumin 3.4 g/dl (3.5-5.0) ED Course/Re-evaluation ED Course 78-year-old female with failure to thrive over the past year. I spoke with both she and her at length about the fact that this is a chronic problem and does not require admission. The patient can eat, but admits that "often she chooses not to. The also states that she spends most of her day sleeping and taking her pain medication. I talked with her in detail about the pain medication, and the fact that she would likely need to come off of her narcotic pain medication. None of her pain is acute. The pain has been ongoing for years she states. I encouraged her to eat whatever she can such as ice cream or milk shakes or ensure. Her said he will fix or anything she likes. I put consult in for the dietary nurse to call family at home to see if they can get her any help until she sees both Dr. Virk and Dr. Sanchez. I do not think she needs TPA at this time. Decision to Disposition Date: Jul 09, 2018 Decision to Disposition Time: 18:42 Depart Departure Latest Vital Signs Vital Signs Date Time Temp Pulse Resp B/P (MAP) Pulse Ox O2 Delivery O2 Flow Rate FiO2 07/09/18 17:35 70 96 07/09/18 17:30 140/107 (118) 07/09/18 15:40 98.2 18 Room Air Impression: Primary Impression: Failure to thrive in adult Condition: Improved Disposition: HOME OR SELF-CARE Referrals: MARLENY SANCHEZ MD (PCP) Patient Instructions: Failure to Thrive (ED) BALA OLMOS MD Jul 09, 2018 15:57
[2018-07-09] MEDS ORDERED: NS(*) 0.9% 1000 ML BAG 1,000 ML IV ONE (16:05)
[2018-07-09 16:57] LABS: PLATELET COUNT, AUTOMATED 309 K/uL (150-450)
[2018-07-09 19:08] VITALS: BP 148/82
[2018-07-14] MEDS ORDERED: CETI10CA8 PO (09:28)
[2018-07-14] MEDS ORDERED: ACET-3017 PO (09:28)
[2018-07-14] MEDS ORDERED: DOCU100C49 PO (09:28)
[2018-07-14] MEDS ORDERED: MULT-27 PO (09:28)
[2018-07-14] MEDS ORDERED: SUCR1TAB85 PO (09:28)
[2018-07-14] MEDS ORDERED: FOLI0.8T29 PO (09:28)
== END 2018-07-09 19:12 | disposition home or self-care (01) ==
LOC: ER 15:59
DX: R62.7 Adult failure to thrive (principal)
CPT/HCPCS: 83605; 85025; 96360; 99283; J7030; 82040; 82247; 82310; 82374; 82435; 82565; 82947; 84075; 84132; 84155; 84295; 84450; 84460; 84520